=== PATIENT | female | born 1965 | race Caucasian/White ===

== ENCOUNTER → 2018-05-07 | Outpatient (CLI) | payer MEDICAID ==
[~2018-05-07] MED LIST: IOPAMIDOL (ISOVUE-300) 100 ML BTL ONE
== END ==
LOC: FIMAGING 10:11
PROVIDERS: ATTEND Otolaryngology
DX: J39.9 Disease of upper respiratory tract, unspecified (principal)
CPT/HCPCS: Q9967

== ENCOUNTER → 2018-05-11 | Outpatient (CLI) | payer MEDICAID | PROVIDERS: ATTEND Otolaryngology | DX: R13.10 Dysphagia, unspecified (principal) | CPT/HCPCS: 92611-GN ==